=== PATIENT | female | born 1950 | race Caucasian/White ===

== ENCOUNTER → 2024-08-27 17:10 | Outpatient (REF) | payer MEDICARE, OTHER, SELFPAY | LOC: CLAB 17:10 | PROVIDERS: ATTENDING PHYSICIAN Specialist; OTHER PHYSICIAN Physician Assistant | DX: C44.01 Basal cell carcinoma of skin of lip (principal); L57.0 Actinic keratosis | CPT/HCPCS: 88305; 88332; 88331 ==